=== PATIENT | male | born 1955 | race Caucasian/White ===

== ENCOUNTER → 2020-11-25 00:35 | Outpatient (CLI) | payer OTHER, SELFPAY ==
[2020-11-25 19:48] LABS: SARS-CoV-2 RNA PCR Negative
== END ==
PROVIDERS: PCP Internal Medicine; Visit Provider Internal Medicine Gastroenterology
DX: Z01.812 Encounter for preprocedural laboratory examination (principal); Z20.822 Contact with and (suspected) exposure to COVID-19
CPT/HCPCS: C9803; U0003; U0005

== ENCOUNTER 2020-11-28 00:47 | Day surgery (SDC) | payer OTHER, SELFPAY ==
[2020-11-14 15:08] VITALS: BMI 28.0
[2020-11-28 08:46] VITALS: BP 162/107; PULSE 102; RESP 18; TEMP 36.3; O2SAT 97
[2020-11-28] MEDS: LACTATED RINGERS 1,000 ML 150 ML IV CONT (09:10)
[2020-11-28 09:14] VITALS: BP 156/101; PULSE 90
--- NOTE | 2020-11-28 09:14 | WPDANESEPPF ---
Anes - Initial Pre Proc Eval Procedure: Operation Date: 11/28/20 10:00 Proposed Procedures p Screening Colonoscopy - Tyler Velazquez MD Date/Time: 11/28/20 09:14 Surgeon: Tyler Velazquez MD Pre Op Diagnosis: Neoplasm Screening Patient Data Age: 65 Gender: M Height: 5 ft 9 in Weight: 86 kg Last Vital Signs Temp 36.3 C L 11/28/20 08:46 Pulse 102 H 11/28/20 08:46 Resp 18 11/28/20 08:46 BP 162/107 H 11/28/20 08:46 Pulse Ox 97 11/28/20 08:46 Allergies Allergy/AdvReac Type Severity Reaction Status Date / Time No Known Allergies Allergy Verified 11/14/20 15:06 Home Medications Medication Instructions Recorded Confirmed Type sodium,potassium,mag sulfates See Rx Instructions .ROUTE 11/10/20 Rx [Suprep Bowel Prep Kit] .COMPLEX #1 ml nutritional supplement-fiber 2 ea PO DAILY 11/14/20 11/14/20 History [Juice Plus] diclofenac sodium 75 mg 75 mg PO BID PRN #90 tablet 11/17/20 Rx tablet,delayed release enalapril maleate 20 mg tablet 20 mg PO BID #90 tablet 11/17/20 Rx hydrochlorothiazide 12.5 mg capsule 25 mg PO DAILY #1 cap 11/24/20 Rx hydrochlorothiazide 12.5 mg tablet 12.5 mg PO DAILY #90 tablet 11/24/20 Rx Patient hx anesthesia problems: none Family hx anesthesia problems: none PMFSH Social History Social History Smoking packs per day: 3 Smoking cigarettes per day: 60.0 Years smoked: 15 Smoking pack-years: 45.00 Smoking status: Former smoker (30 years ago) Tobacco type: cigarettes Smoking end date: 10/13/89 Drinks per week: 4 Living arrangements: with family Gender identity (if verbalized by the patient): Male Spiritual care concerns: No Anes - Eval Final PreProcedure Day of Procedure 11/28/20 09:14 Patient weight: overweight Heart: regular rate and rhythm Lungs: clear to auscultation Airway: Mallampati scale class II Neurological: alert and oriented Last oral intake: >/= 8 hours ASA classification: II Emergent: no Anesthetic plan: proceed Anesthesia type and monitoring: general GIVS and standard monitoring Informed Consent: The patient's anesthetic plan and its attendant risks and benefits were discussed with the patient/family/POA. Questions were solicited and answers provided to the satisfaction of the patient/family/POA.
--- NOTE | 2020-11-28 09:14 | SUR.PREOP ---
0914 Dr. Valerio notified of patient's elevated B/P's this morning. Patient denies any headache or dizziness. No orders received at this time.
--- NOTE | 2020-11-28 09:26 | PM.HPGS ---
History of Present Illness History of Present Illness Consent: Risks, benefits, and alternatives have been discussed and questions answered. Patient agrees to proceed with procedure. Chief complaint: Neoplasm Screening Narrative: Sawyer Gan Jr. is a 65 year old male here for first screening colonoscopy Review of Systems Constitutional: Constitutional: Denies headache(s) and Denies weakness Eyes: Eyes: Denies blurry vision ENT: Reports Normal hearing present, Denies headache(s) and Denies neck pain Cardiovascular: Cardiovascular: Denies chest pain and Denies dyspnea Respiratory: Respiratory: Denies dyspnea Gastrointestinal: Gastrointestinal: Reports no additional gastrointestinal complaints Genitourinary: Genitourinary: Denies dysuria Musculoskeletal: Musculoskeletal: Denies neck pain Integumentary/Breasts: Skin/Breast: Denies dry skin Neurologic: Reports Normal hearing present, Denies headache(s) and Denies weakness Psychiatric: Psychiatric: Denies anxiety Endocrine: Endocrine: Denies change in body appearance Hematologic/Lymphatic: Hematologic/Lymphatic: Denies easy bleeding Allergic/Immunologic: Allergic/Immunologic: Denies urticaria PMFSH Social History Social History Smoking packs per day: 3 Smoking cigarettes per day: 60.0 Years smoked: 15 Smoking pack-years: 45.00 Smoking status: Former smoker (30 years ago) Tobacco type: cigarettes Smoking end date: 10/13/89 Drinks per week: 4 Living arrangements: with family Gender identity (if verbalized by the patient): Male Spiritual care concerns: No Meds Home Medications and Allergies Home Medications Medication Instructions Recorded Confirmed Type sodium,potassium,mag sulfates See Rx Instructions .ROUTE 11/10/20 Rx [Suprep Bowel Prep Kit] .COMPLEX #1 ml nutritional supplement-fiber 2 ea PO DAILY 11/14/20 11/14/20 History [Juice Plus] diclofenac sodium 75 mg 75 mg PO BID PRN #90 tablet 11/17/20 Rx tablet,delayed release enalapril maleate 20 mg tablet 20 mg PO BID #90 tablet 11/17/20 Rx hydrochlorothiazide 12.5 mg capsule 25 mg PO DAILY #1 cap 11/24/20 Rx hydrochlorothiazide 12.5 mg tablet 12.5 mg PO DAILY #90 tablet 11/24/20 Rx Allergies Allergy/AdvReac Type Severity Reaction Status Date / Time No Known Allergies Allergy Verified 11/14/20 15:06 Vital Signs Vital Signs - 24 hr 11/28/20 08:46 11/28/20 09:14 Temperature 97.4 F L Pulse Rate 102 H 90 Respiratory Rate 18 Blood Pressure 162/107 H 156/101 H Pulse Oximetry 97 Exam Const: General: comfortable and no acute distress HENMT: General nose exam: Normal nares present Eyes: General: appearance normal, both eyes and all related structures Neck: Neck: no JVD Resp: Auscultation: clear to auscultation bilaterally Cardio: Rate: regular rate Rhythm: regular rhythm GI: Inspection: non-distended GI Palp: Yes Soft to palpation Skin: General skin exam: normal color Neuro: General: gait normal Speech: normal speech Extrem: General: normal to inspection Psych: Mental Status: mental status grossly normal Assessment and Plan Assessment and plan (1) Encounter for screening colonoscopy: Code(s): Z12.11 - Encounter for screening for malignant neoplasm of colon Status: Acute Assessment and Plan: proceed with colonoscopy
[2020-11-28 09:45] VITALS: BP 113/77; PULSE 75; RESP 18; O2SAT 98
[2020-11-28 09:55] VITALS: BP 128/87; PULSE 84; RESP 22; O2SAT 97
[2020-11-28 10:05] VITALS: BP 145/81; PULSE 73; RESP 19; O2SAT 99
== END 2020-11-28 10:18 | disposition home or self-care (01) ==
PROVIDERS: PCP Internal Medicine; Visit Provider Internal Medicine Gastroenterology
PROC: 0DJD8ZZ Inspection of Lower Intestinal Tract, Via Natural or Artificial Opening Endoscopic (ICD-10-PCS; CPT 45378; principal; 2020-11-28 10:00)
DX: Z12.11 Encounter for screening for malignant neoplasm of colon (principal); K57.30 Diverticulosis of large intestine without perforation or abscess without bleeding; Z87.891 Personal history of nicotine dependence
CPT/HCPCS: G0121; C9803; J2704; J7120; U0003; U0005

== ENCOUNTER → 2021-12-17 09:23 | Outpatient (CLI) | payer OTHER, SELFPAY ==
--- NOTE | ~2021-12-17 | XR_ITS ---
EXAMINATION: XR knee LT 3V DATE: 12/17/2021 09:41 INDICATION: Other hypertrophic arthropathy, multiple sites. Left knee pain. TECHNIQUE: 3 views of left knee including standing views were obtained. COMPARISON: None. FINDINGS: There is varus attenuation at the knee. No fracture. There is moderate osteoarthritis of me dial compartment and mild osteoarthritis of lateral and patellofemoral compartments. No knee joint ef fusion. IMPRESSION: 1. Moderate left knee osteoarthritis. Reviewed, dictated and finalized at location A. APY DIRECTOR
== END ==
PROVIDERS: PCP Internal Medicine; Visit Provider Internal Medicine
DX: M89.49 Other hypertrophic osteoarthropathy, multiple sites (principal); M17.12 Unilateral primary osteoarthritis, left knee
CPT/HCPCS: 73562

== ENCOUNTER → 2022-03-28 08:03 | Outpatient (CLI) | payer OTHER, SELFPAY ==
--- NOTE | ~2022-03-28 | MR_ITS ---
EXAMINATION: MR shoulder LT wo con DATE: 03/28/2022 08:40 INDICATION: Left shoulder pain. TECHNIQUE: Magnetic resonance imaging (MRI) of the left shoulder was performed without intravenous co ntrast. Sequences included axial PD-weighted FS FSE, coronal oblique PD-weighted FS FSE and T2-weight ed FS FSE, and sagittal oblique T2-weighted FS FSE and T1-weighted FSE. COMPARISON: None. FINDINGS: Coracoacromial arch: The acromion undersurface is curved in morphology (type II). There is severe acromioclavicular joint osteoarthritis including inferiorly directed osteophytes. There is mild subacromial/subdeltoid bursit is. Rotator cuff: There is severe supraspinatus and infraspinatus tendinopathy. Teres minor tendon is normal. There is mild subscapularis tendinopathy. There is volume loss and mild fatty atrophy of subscapularis muscle belly. Biceps tendon and glenoid labrum: Biceps tendon is in bicipital groove. There is a partial tear of biceps tendon. There is widespread d egenerative tearing of the glenoid labrum. Fluid: There is no glenohumeral joint effusion. Bones/cartilage: There is partial-thickness cartilage loss of humeral head, deep at the central and posterior articula r surface. There is partial-thickness cartilage loss of glenoid. Osteophytes are noted. IMPRESSION: 1. Severe rotator cuff tendinopathy. No tear. 2. Moderate glenohumeral joint chondrosis. 3. Partial tear of proximal biceps tendon. 4. Severe acromioclavicular joint osteoarthritis. 5. Mild subacromial/subdeltoid bursitis. Reviewed, dictated and finalized at location B.
== END ==
PROVIDERS: PCP Internal Medicine; Visit Provider Internal Medicine
DX: M19.012 Primary osteoarthritis, left shoulder (principal); M75.52 Bursitis of left shoulder; M75.101 Unspecified rotator cuff tear or rupture of right shoulder, not specified as traumatic
CPT/HCPCS: 73221

== ENCOUNTER → 2022-05-31 13:57 | Outpatient (CLI) | payer OTHER, SELFPAY ==
--- NOTE | ~2022-05-31 | MR_ITS ---
EXAMINATION: MR chest wo/w con DATE: 05/31/2022 15:21 INDICATION: Left leg pain. Left arm weakness. TECHNIQUE: Magnetic resonance imaging (MRI) of the left brachial plexus was performed without and wit h 17 mL MultiHance intravenous contrast. COMPARISON: Cervical spine MRI 05/31/2022, left shoulder MRI 03/28/2022 FINDINGS: Bone alignment is normal. There is severe cervical spondylosis. The nerves of the left brac hial plexus are normal. No abnormal mass. IMPRESSION: 1. Normal left brachial plexus. 2. Severe cervical spondylosis. Reviewed, dictated and finalized at location A.
--- NOTE | ~2022-05-31 | MR_ITS ---
EXAMINATION: MR cervical spine wo/w con DATE: 05/31/2022 15:21 INDICATION: Left neck pain. Left arm weakness. TECHNIQUE: Magnetic resonance imaging (MRI) of the cervical spine was performed without and with 17 m L MultiHance intravenous contrast. COMPARISON: None FINDINGS: There is 2 mm retrolisthesis of C3 on C4. Vertebral body heights are normal. There is sever marcus decreased disc height at C3-C4 and moderately decreased disc height at C5-C6 and C6-C7. There is increased T2-weighted signal intensity in the spinal cord at C5-C6, consistent with myelomalacia. The following disc levels are specifically discussed: C2-C3: The disc does not extend beyond the endplate margin. There is no uncovertebral joint osteoarth ritis. There is mild bilateral facet joint osteoarthritis. There is no neural foraminal stenosis. The re is no central canal stenosis. C3-C4: The disc is bulging. There is severe bilateral uncovertebral joint osteoarthritis. There is mi ld bilateral facet joint osteoarthritis. There is moderate bilateral neural foraminal stenosis. There is moderate central canal stenosis with ventral and dorsal indentation of the spinal cord. C4-C5: There is a left central extrusion. There is severe bilateral uncovertebral joint osteoarthriti s. There is moderate bilateral facet joint osteoarthritis. There is moderate bilateral neural foramin al stenosis. There is moderate central canal stenosis with ventral and dorsal indentation of spinal c ord. C5-C6: There is a central extrusion. There is severe bilateral uncovertebral joint osteoarthritis. Th ere is moderate bilateral facet joint osteoarthritis. There is severe bilateral neural foraminal sten osis. There is severe central canal stenosis with ventral and dorsal indentation of the spinal cord a nd increased signal in the cord.. C6-C7: The disc is bulging. There is severe bilateral uncovertebral joint osteoarthritis. There is mi ld right and moderate left facet joint osteoarthritis. There is moderate bilateral neural foraminal s tenosis. There is moderate central canal stenosis with ventral and dorsal indentation of the spinal c ord. C7-T1: There is a right central extrusion. There is mild bilateral uncovertebral joint osteoarthritis . There is severe bilateral facet joint osteoarthritis. There is mild right neural foraminal stenosis . There is mild central canal stenosis. IMPRESSION: 1. Myelomalacia at C5-C6. 2. Severe cervical spondylosis. Reviewed, dictated and finalized at location A.
== END ==
PROVIDERS: PCP Internal Medicine; Visit Provider Psychiatry & Neurology Neurology
DX: R53.1 Weakness (principal); M79.662 Pain in left lower leg
CPT/HCPCS: 71552; 72156; A9577

== ENCOUNTER 2022-07-17 08:25 | Outpatient (CLI) | payer OTHER, SELFPAY ==
--- NOTE | 2022-07-17 11:00 | NEURO_ITS ---
IMPRESSION: # Bilateral Carpal Tunnel Syndrome. # Mild right ulnar neuropathy across the elbow. # Needle exam revealed neurogenic changes in deltoid, biceps, triceps and pronater teres on the left ,suggesting higher involvement. Nerve Conduction Studies Anti Sensory Summary Table Stim Site NR Peak (ms) P-T Amp (?V) Site1 Site2 Delta-P (ms) Dist (cm) Gary (m/s) Left Median Anti Sensory (2-3nd Digit) Wrist 2.6 54.0 Wrist 2-3nd Digit 2.6 14.0 54 Wrist 5.0 30.3 Wrist 2-3nd Digit 2.6 14.0 54 Right Median Anti Sensory (2-3nd Digit) Wrist 5.5 54.3 Wrist 2-3nd Digit 5.5 14.0 25 Wrist 8.6 95.3 Wrist 2-3nd Digit 5.5 14.0 25 Left Radial Anti Sensory (Base 1st Digit) Wrist 2.2 6.7 Wrist Base 1st Digit 2.2 0.0 Right Radial Anti Sensory (Base 1st Digit) Wrist 2.9 15.5 Wrist Base 1st Digit 2.9 0.0 Left Ulnar Anti Sensory (5th Digit) Wrist 3.6 12.2 Wrist 5th Digit 3.6 14.0 39 Right Ulnar Anti Sensory (5th Digit) Wrist 3.5 21.1 Wrist 5th Digit 3.5 14.0 40 Motor Summary Table Stim Site NR Onset (ms) O-P Amp (mV) Site1 Site2 Delta-0 (ms) Dist (cm) Gary (m/s) Left Median Motor (Abd Poll Brev) Wrist 5.0 3.8 Elbow Wrist 6.2 32.0 52 Elbow 11.2 3.3 Right Median Motor (Abd Poll Brev) Wrist 5.5 4.0 Elbow Wrist 6.0 28.0 47 Elbow 11.5 3.6 Left Ulnar Motor (Abd Dig Minimi) Wrist 3.0 5.4 A Elbow Wrist 5.7 30.0 53 A Elbow 8.7 4.4 B Elbow Wrist 4.0 23.0 58 B Elbow 7.0 2.9 Right Ulnar Motor (Abd Dig Minimi) Wrist 4.2 4.7 A Elbow Wrist 5.0 30.0 60 A Elbow 9.2 3.1 F Wave Studies NR F-Lat (ms) L-R F-Lat (ms) Left Median (Mrkrs) (Abd Poll Brev) 32.81 0.00 Right Median (Mrkrs) (Abd Poll Brev) 32.81 0.00 Left Ulnar (Mrkrs) (Abd Dig Min) 30.78 1.38 Right Ulnar (Mrkrs) (Abd Dig Min) 32.16 1.38 EMG Side Muscle Nerve Root Ins Act Fibs Amp Dur Recrt Comment Right 1stDorInt Ulnar C8-T1 Nml Nml Nml Nml Nml Right Ext Indicis Radial (Post Int) C7-8 Nml Nml Nml Nml Nml Right Ext Digitorum Radial (Post Int) C7-8 Nml Nml Nml Nml Nml Right BrachioRad Radial C5-6 Nml Nml Nml Nml Nml Right PronatorTeres Median C6-7 Nml Nml Nml Nml Nml Right Abd Poll Brev Median C8-T1 Nml Nml Nml Nml Nml Left 1stDorInt Ulnar C8-T1 Nml Nml Nml Nml Nml Left Ext Indicis Radial (Post Int) C7-8 Nml Nml Nml Nml Nml Left Ext Digitorum Radial (Post Int) C7-8 Nml Nml Nml Nml Nml Left BrachioRad Radial C5-6 Nml Nml Nml Nml Nml Left PronatorTeres Median C6-7 Nml Nml Nml Nml Nml Left Abd Poll Brev Median C8-T1 Nml Nml Nml Nml Nml MTDD
== END 2022-07-17 08:26 | disposition home or self-care (01) ==
PROVIDERS: PCP Internal Medicine; Visit Provider Psychiatry & Neurology Neurology
DX: R53.1 Weakness (principal); G56.03 Carpal tunnel syndrome, bilateral upper limbs; G56.21 Lesion of ulnar nerve, right upper limb
CPT/HCPCS: 95886; 95911

== ENCOUNTER → 2022-08-12 08:12 | Outpatient (CLI) | payer OTHER, SELFPAY ==
--- NOTE | ~2022-08-12 | CT_ITS ---
EXAMINATION: CT cervical spine wo con DATE: 08/12/2022 08:27 INDICATION: Neck pain. Left arm weakness. TECHNIQUE: Computed tomography (CT) of the cervical spine was performed without intravenous contrast. Automated exposure control and iterative reconstruction technique were employed. The dose-length pro duct was 329.14 mGy-cm. COMPARISON: Cervical spine MRI 05/31/2022 FINDINGS: There is 2 mm retrolisthesis of C3 on C4, C4 on C5, and C5 on C6. Vertebral body heights ar e normal. There is mildly decreased disc height at C2-C3, severely decreased disc height at C3-C4, mi ldly decreased disc height at C4-C5, severely decreased disc height at C5-C6 and C6-C7, and mildly de creased disc height at C7-T1. Osseous central spinal canal is developmentally small. The following di sc levels are specifically discussed: C2-C3: There is no uncovertebral joint osteoarthritis. There is mild bilateral facet joint osteoarthr itis. There is no neural foraminal stenosis. There is no central canal stenosis. C3-C4: There is severe bilateral uncovertebral joint osteoarthritis. There is mild bilateral facet darrian int osteoarthritis. There is mild right and moderate left neural foraminal stenosis. There is moderat e central canal stenosis. C4-C5: There is severe bilateral uncovertebral joint osteoarthritis. There is moderate right and maria alejandra re left facet joint osteoarthritis. There is mild right and moderate left neural foraminal stenosis. There is moderate central canal stenosis. C5-C6: There is severe bilateral uncovertebral joint osteoarthritis. There is moderate bilateral face t joint osteoarthritis. There is severe bilateral neural foraminal stenosis. There is severe central canal stenosis. C6-C7: There is severe bilateral uncovertebral joint osteoarthritis. There is moderate bilateral face t joint osteoarthritis. There is moderate bilateral neural foraminal stenosis. There is moderate cent ral canal stenosis. C7-T1: There is mild bilateral uncovertebral joint osteoarthritis. There is severe bilateral facet darrian int osteoarthritis. There is mild bilateral neural foraminal stenosis. There is no central canal sten osis. IMPRESSION: 1. Severe cervical spondylosis. Reviewed, dictated and finalized at location A.
== END ==
PROVIDERS: PCP Neurological Surgery; Visit Provider Neurological Surgery
DX: M47.892 Other spondylosis, cervical region (principal)
CPT/HCPCS: 72125

== ENCOUNTER 2022-08-28 10:43 | Outpatient (CLI) | payer OTHER, SELFPAY ==
--- NOTE | ~2022-08-28 | XR_ITS ---
XR chest 2V DATE: 08/28/2022 11:41 INDICATION: Preprocedural examination TECHNIQUE: PA and lateral views COMPARISON: None FINDINGS: There is normal heart size. Mild aortic unfolding. No hilar or mediastinal enlargement. No pulmonary infiltrate or consolidation, pleural effusion or pulmonary vascular congestion or pneumotho rax. There is degenerative spurring and minimal dextroscoliosis of the thoracic spine. IMPRESSION: No active cardiopulmonary disease Reviewed, dictated and finalized at location A. ICAL RESEARCH ASSISTANT
--- NOTE | 2022-08-28 10:55 | ECG_ITS ---
Measurements Intervals [place] Rate: 63 P: 5 MN: 180 QRS: -37 QRSD: 109 T: 4 QT: 393 QTc: 403 Interpretive Statements SINUS RHYTHM WITH SINUS ARRHYTHMIA LEFT AXIS DEVIATION DELAYED PRECORDIAL R/S TRANSITION VOLTAGE CRITERIA FOR LVH BORDERLINE T WAVE ABNORMALITY- INFERIOR LEADS BASELINE ARTIFACT- V3 BORDERLINE ECG NO PREVIOUS ECG AVAILABLE FOR COMPARISON Electronically Signed On 08-28-2022 12:14:29 GLOBAL SAFETY OFFICER by Reyes Jules D.O.
== END 2022-08-28 10:44 | disposition home or self-care (01) ==
LOC: ANHLAB 10:45 → ANHCARD 10:47
PROVIDERS: PCP Neurological Surgery; Visit Provider Internal Medicine
DX: Z01.818 Encounter for other preprocedural examination (principal); R94.31 Abnormal electrocardiogram [ECG] [EKG]
CPT/HCPCS: 71046; 93005

== ENCOUNTER 2022-08-29 06:37 | Outpatient (CLI) | payer OTHER, SELFPAY ==
[2022-08-29 07:38] LABS: Hematocrit 44.1 % (42.0-52.0); Mean Corpuscular Hemoglobin 31.3 pg (26-34); Mean Corpuscular Volume 92.1 fl (80-100); Mean Platelet Volume 8.7 fl (7.4-10.4); Platelet Count Result 288 k/mm3 (150-375); Red Blood Count 4.79 M/mm3 (4.6-6.20); Red Cell Distribution Width 12.5 % (11.5-14.5); White Blood Count 4.4 K/mm3 (4.5-10.0)
[2022-08-29 07:45] LABS: Alanine Aminotransferase 32 U/L (6-50); Albumin Level 4.6 g/dL (3.5-5.1); Alkaline Phosphatase 57 U/L (38-126); Anion Gap 13 mmol/L (8-16); Aspartate Amino Transferase 34 U/L (17-59); Bilirubin,Total 0.7 mg/dL (0.2-1.3); Blood Urea Nitrogen 18 mg/dL (9-20); Calcium 9.6 mg/dL (8.4-10.2); Carbon Dioxide 29 mmol/L (22-30); Chloride 99 mmol/L (98-107); Cholesterol 132 mg/dL (0-200); Estimated Glomerular Filt Rate > 60; Glucose 105 mg/dL (65-110); HDL Direct 32 mg/dL; Potassium 3.9 mmol/L (3.4-5.0); Sodium 141 mmol/L (137-145); Triglycerides 106 mg/dL (<150)
[2022-08-29 07:56] LABS: LDL Cholesterol Direct 67 mg/dL
== END 2022-08-29 06:38 | disposition home or self-care (01) ==
PROVIDERS: PCP Neurological Surgery; Visit Provider Internal Medicine
DX: Z01.818 Encounter for other preprocedural examination (principal); E78.5 Hyperlipidemia, unspecified; I10 Essential (primary) hypertension
CPT/HCPCS: 36415; 80053; 80061; 85027

== ENCOUNTER 2022-10-10 06:29 | Day surgery (SDC) | payer OTHER, SELFPAY ==
[2022-09-26 13:27] VITALS: BMI 28.5
--- NOTE | 2022-09-26 13:38 | PC.NURSE ---
PRE-OP INSTRUCTIONS, PLEASE READ CAREFULLY Report to the Outpatient Waiting Room, entrance under the green pavilion located off [facility], at time _0600_ on date _10/10/22_. Planned Procedure Time: _0730_. PACK A SMALL OVERNIGHT BAG AND LEAVE IN THE CAR Time changes happen often and if your time is changed the preop area will call you the afternoon before. - You and your visitor will be asked to self-screen and do not enter if you have any COVID symptoms. - Only one visitor is requested with a max of two and NO children visitors are allowed at this time. - The patient visitor may be requested to leave or wait in car when not with patient due to distancing restrictions. - A mask is required within the hospital. -VISITING HOURS 8AM-8PM Patients may have clear liquids (water, carbonated beverages, clear teas, apple juice) until 3 hours prior to surgery (0730 AM) with a maximum of 20 ounces. - No food from midnight until time of surgery Take the following medications with a SIP of water the morning of surgery: _NONE_ Medications to discontinue per ANESTHESIA - _VITAMINS/SUPPLEMENTS 3 DAYS PRIOR TO SURGERY, Date to take last dose 10/06/22_ Please no make-up, nail occitan, hairspray, perfume, deodorant, or body powder the day of surgery. No jewelry (including any body piercings) or valuables the day of surgery, leave them at home. Please take a shower or bath the night before, or the morning of, surgery with an antibacterial soap. Wear comfortable, loose fitting clothing. - Jewelry must be removed prior to entering the operating room. Rings and piercings that are not removed may be cut off. - The hospital will not accept responsibility for valuables. - Please leave all valuables, including medications, at home the day of surgery. If you are going home after surgery, a licensed refrigerated company driver must drive you home. - NO public transportation without another adult if you receive anesthesia. - We recommend that an adult stay with you for 24 hours following discharge. - We also recommend that you do not drive, make important decision, drink alcoholic beverages, or take any drugs that were not prescribed by your health care provider for at least 24 hours after your discharge time. Follow any additional instructions given to you from your surgeon. If you or anyone in your household have experienced Covid symptoms in the past week, please notify your surgeon or the nurse liaison at the phone number below for possible testing. Telephone instructions given to _PATIENT_and asked if any additional questions and then verbalized understanding. Patient advised to call surgeon office or pre surgery nurse liaison [phone] if any additional questions.
== END 2022-10-10 08:56 ==
PROVIDERS: PCP Internal Medicine; Visit Provider Neurological Surgery
DX: M48.02 Spinal stenosis, cervical region (principal); Z53.9 Procedure and treatment not carried out, unspecified reason
CPT/HCPCS: 99199

== ENCOUNTER → 2023-03-19 14:34 | Outpatient (CLI) | payer OTHER, SELFPAY ==
--- NOTE | ~2023-03-19 | MR_ITS ---
EXAMINATION: MR cervical spine wo con DATE: 03/19/2023 15:10 INDICATION: Neck pain. TECHNIQUE: Magnetic resonance imaging (MRI) of the cervical spine was performed without intravenous c ontrast. COMPARISON: Cervical spine MRI 05/31/2022 FINDINGS: There is kyphosis of cervical spine. There is 2 mm retrolisthesis of C3 on C4, C4 on C5, an d C5 on C6. Vertebral body heights are normal. There is severely decreased disc height at C3-C4, mild ly decreased disc height at C4-C5, and severely decreased disc height at C5-C6 and C6-C7. There is in creased T2-weighted signal intensity in the spinal cord centered at the bradford matter at C5-C6 and C6-C 7, consistent with myelomalacia. The following disc levels are specifically discussed: C2-C3: The disc does not extend beyond the endplate margin. There is no uncovertebral joint osteoarth ritis. There is mild bilateral facet joint osteoarthritis. There is no neural foraminal stenosis. The re is no central canal stenosis. C3-C4: There is a central extrusion. There is moderate bilateral uncovertebral joint osteoarthritis. There is mild bilateral facet joint osteoarthritis. There is mild bilateral neural foraminal stenosis . There is mild central canal stenosis with ventral indentation of spinal cord. C4-C5: There is a central extrusion. There is mild right and severe left uncovertebral joint osteoart hritis. There is moderate bilateral facet joint osteoarthritis. There is mild right and moderate left neural foraminal stenosis. There is moderate central canal stenosis with ventral and dorsal indentat ion of spinal cord. C5-C6: There is a central extrusion. There is severe bilateral uncovertebral joint osteoarthritis. Th ere is moderate bilateral facet joint osteoarthritis. There is severe bilateral neural foraminal sten osis. There is severe central canal stenosis with ventral and dorsal indentation of spinal cord. C6-C7: There is a central extrusion. There is severe bilateral uncovertebral joint osteoarthritis. Th ere is moderate bilateral facet joint osteoarthritis. There is moderate bilateral neural foraminal st enosis. There is mild central canal stenosis. C7-T1: There is a central extrusion. There is mild bilateral uncovertebral joint osteoarthritis. Ther e is severe bilateral facet joint osteoarthritis. There is mild bilateral neural foraminal stenosis. There is mild central canal stenosis. IMPRESSION: 1. Myelomalacia at C5-C6 and C6-C7. 2. Severe cervical spondylosis, stable from 05/31/2022. Reviewed, dictated and finalized at location A.
== END ==
PROVIDERS: PCP Family Medicine; Visit Provider Neurological Surgery
DX: G95.89 Other specified diseases of spinal cord (principal); M47.812 Spondylosis without myelopathy or radiculopathy, cervical region
CPT/HCPCS: 72141

== ENCOUNTER 2023-05-14 07:35 | Outpatient (CLI) | payer OTHER, SELFPAY ==
[2023-05-14 07:56] LABS: Hemoglobin A1C 5.8 % (<5.7)
[2023-05-14 07:57] LABS: Alanine Aminotransferase 28 U/L (6-50); Albumin Level 4.4 g/dL (3.5-5.1); Alkaline Phosphatase 61 U/L (38-126); Anion Gap 8 mmol/L (8-16); Aspartate Amino Transferase 31 U/L (17-59); Bilirubin,Total 0.8 mg/dL (0.2-1.3); Blood Urea Nitrogen 17 mg/dL (9-20); Calcium 9.2 mg/dL (8.4-10.2); Carbon Dioxide 30 mmol/L (22-30); Chloride 101 mmol/L (98-107); Cholesterol 126 mg/dL (0-200); Estimated Glomerular Filt Rate > 60; Glucose 104 mg/dL (65-110); HDL Direct 31 mg/dL; Potassium 3.6 mmol/L (3.4-5.0); Sodium 139 mmol/L (137-145); Triglycerides 92 mg/dL (<150)
[2023-05-14 08:08] LABS: LDL Cholesterol Direct 67 mg/dL
[2023-05-14 08:26] LABS: Prostate Specific Antigen 0.4 ng/mL (< OR = 4.0)
[2023-05-17 12:18] LABS: Vitamin D 1,25 (OH)2 Total 32 pg/mL (18-72); Vitamin D2 1,25 (OH)2 <8 pg/mL; Vitamin D3 1,25 (OH)2 32 pg/mL
== END 2023-05-14 07:36 | disposition home or self-care (01) ==
PROVIDERS: PCP Family Medicine; Visit Provider Family Medicine
DX: E55.9 Vitamin D deficiency, unspecified (principal); I10 Essential (primary) hypertension; E78.5 Hyperlipidemia, unspecified; N40.0 Benign prostatic hyperplasia without lower urinary tract symptoms; Z79.899 Other long term (current) drug therapy; Z12.5 Encounter for screening for malignant neoplasm of prostate
CPT/HCPCS: 36415; 80053; 80061; 82652; 83036; 84153; G0103

== ENCOUNTER 2024-01-20 06:40 | Outpatient (CLI) | payer OTHER, SELFPAY ==
[2024-01-20 07:28] LABS: Hematocrit 43.2 % (42.0-52.0); Hemoglobin 14.5 g/dL (14.0-18.0); Mean Corpuscular HGB Conc 33.6 g/dl (32-36); Mean Corpuscular Hemoglobin 30.9 pg (26-34); Mean Corpuscular Volume 92.1 fl (80-100); Mean Platelet Volume 8.9 fl (7.4-10.4); Platelet Count Result 283 k/mm3 (150-375); Red Blood Count 4.69 M/mm3 (4.6-6.20); Red Cell Distribution Width 12.4 % (11.5-14.5); White Blood Count 5.2 K/mm3 (4.5-10.0)
[2024-01-20 07:46] LABS: Alanine Aminotransferase 21 U/L (6-50); Albumin Level 4.3 g/dL (3.5-5.1); Alkaline Phosphatase 66 U/L (38-126); Anion Gap 6 mmol/L (4-12); Aspartate Amino Transferase 28 U/L (17-59); Bilirubin,Total 0.7 mg/dL (0.2-1.3); Blood Urea Nitrogen 20 mg/dL (9-20); Calcium 9.8 mg/dL (8.4-10.2); Carbon Dioxide 29 mmol/L (22-30); Chloride 105 mmol/L (98-107); Cholesterol 130 mg/dL (0-200); Estimated Glomerular Filt Rate > 60; Glucose 114 mg/dL (65-110); HDL Direct 30 mg/dL; Potassium 3.9 mmol/L (3.4-5.0); Sodium 140 mmol/L (137-145); Triglycerides 90 mg/dL (<150)
[2024-01-20 07:58] LABS: LDL Cholesterol Direct 79 mg/dL
[2024-01-20 08:15] LABS: Prostate Specific Antigen 0.4 ng/mL (< OR = 4.0)
[2024-01-20 09:52] LABS: Vitamin D 25 Hydroxy 79.4 ng/mL
== END 2024-01-20 06:41 | disposition home or self-care (01) ==
PROVIDERS: PCP Family Medicine; Visit Provider Family Medicine
DX: M48.02 Spinal stenosis, cervical region (principal); E55.9 Vitamin D deficiency, unspecified; I10 Essential (primary) hypertension; E78.5 Hyperlipidemia, unspecified; Z86.19 Personal history of other infectious and parasitic diseases; Z12.5 Encounter for screening for malignant neoplasm of prostate
CPT/HCPCS: 36415; 80053; 80061; 82306; 84153; 85027; G0103

== ENCOUNTER 2024-07-31 06:57 | Outpatient (CLI) | payer OTHER, SELFPAY ==
[2024-07-31 07:47] LABS: Hematocrit 40.9 % (42.0-52.0); Hemoglobin 14.3 g/dL (14.0-18.0); Mean Corpuscular Hemoglobin 32.2 pg (26-34); Mean Corpuscular Volume 92.1 fl (80-100); Mean Platelet Volume 8.4 fl (7.4-10.4); Platelet Count Result 237 k/mm3 (150-375); Red Blood Count 4.44 M/mm3 (4.6-6.20); Red Cell Distribution Width 12.5 % (11.5-14.5); White Blood Count 3.6 K/mm3 (4.5-10.0)
[2024-07-31 07:56] LABS: Alanine Aminotransferase 25 U/L (6-50); Albumin Level 4.2 g/dL (3.5-5.1); Alkaline Phosphatase 50 U/L (38-126); Anion Gap 6 mmol/L (4-12); Aspartate Amino Transferase 32 U/L (17-59); Bilirubin,Total 0.8 mg/dL (0.2-1.3); Blood Urea Nitrogen 20 mg/dL (9-20); Calcium 9.6 mg/dL (8.4-10.2); Carbon Dioxide 31 mmol/L (22-30); Chloride 102 mmol/L (98-107); Estimated Glomerular Filt Rate > 60; Glucose 112 mg/dL (65-110); Sodium 139 mmol/L (137-145)
[2024-07-31 08:13] LABS: Hemoglobin A1C 5.7 % (<5.7)
== END 2024-07-31 06:58 | disposition home or self-care (01) ==
PROVIDERS: PCP Family Medicine; Visit Provider Family Medicine
DX: E78.5 Hyperlipidemia, unspecified (principal); I10 Essential (primary) hypertension; E55.9 Vitamin D deficiency, unspecified; Z79.899 Other long term (current) drug therapy
CPT/HCPCS: 36415; 80053; 82306; 83036; 85027

== ENCOUNTER 2025-02-09 07:01 | Outpatient (CLI) | payer OTHER, SELFPAY ==
--- NOTE | ~2025-02-09 | MR_ITS ---
MRI of the cervical spine Clinical History: Stenosis Technique: Axial T2-weighted and gradient images, and sagittal T1-weighted, T2-weighted, and STIR mau ges were acquired. COMPARISON: 03/19/2023 Findings: There is mild reversal normal cervical lordosis. There is 2 mm retrolisthesis of C3 over C4 . There is 2 mm retrolisthesis of C4 over C5. No suspicious bone marrow signal abnormality seen. At C2-C3, there is no disc bulge or herniation. No spinal canal stenosis, cord compression, or neural foraminal narrowing. At C3-C4, there is severe degenerative disc narrowing. There is disc osteophyte complex with mild to moderate canal stenosis and mild ventral cord compression. There is bilateral neural foraminal narrow ing. At C4-C5, there is moderate to advanced degenerative disc narrowing. There is disc osteophyte complex with moderate canal stenosis and cord compression. There is severe bilateral neural foraminal narrow ing. At C5-C6, there is severe degenerative disc narrowing. Disc osteophyte complex and disc protrusion re sult in severe spinal canal stenosis and severe cord compression. There is severe bilateral neural fo raminal narrowing with advanced bilateral facet arthropathy. At C6-C7, there is severe degenerative disc narrowing. There is disc osteophyte complex with moderate canal stenosis but no tamiko cord compression. There is bilateral neural foraminal narrowing. Probable myelomalacia at the C5-C6 level, similar to prior exam. Paravertebral soft tissues are unrem arkable. Impression: Severe degenerative spondylosis is similar to prior exam. There is severe canal stenosis and cord com pression at C5-C6 with myelomalacia at this level. There is moderate canal stenosis and cord compress ion at C3-C4 and C4-C5. Multilevel neural foraminal narrowing present. Please see details above. Reviewed, dictated and finalized at [facility]. Impression: Severe degenerative spondylosis is similar to prior exam. There is severe canal stenosis and cord compression at C5-C6 with myelomalacia at this level. There is moderate canal stenosis and cord compression at C3-C4 and C4-C5. Multilevel neural foraminal narrowing present. Please see details above.
== END 2025-02-09 07:02 | disposition home or self-care (01) ==
LOC: MICIMG 07:01
PROVIDERS: PCP Neurological Surgery; Visit Provider Neurological Surgery
DX: M48.02 Spinal stenosis, cervical region (principal); M47.892 Other spondylosis, cervical region
CPT/HCPCS: 72141

== ENCOUNTER 2025-04-23 06:38 | Outpatient (CLI) | payer OTHER, SELFPAY ==
--- OUTSIDE RECORDS SUMMARY | 2025-04-23 06:40 | XMS_ITS | Clinical Summary ---
Author Organization [facility] Address [address] [place] [address] Care Team Providers Care Underwriting Account Representative Name Role Phone Michael Hyde MD Primary Care Provider Source Comments [facility],non-owned Affiliates and Associated Physician Practices is amultiple site organization consisting of ambulatory clinics and hospital sitesin [place], [place], [place] and [place]. This disclosure is being madepursuant to the Care Everywhere program and may not contain all information available regarding this patient. Last updated 18.[facility] Active Problems Problem Noted Date Diagnosed Date Viral hepatitis C without hepatic coma 6 Overview (01/12/2018): Started viekira and ribavirin Started 07/25/2015 completed October Obtained SVR Essential (primary) hypertension 05/09/2015 Family History Medical History Relation Name Comments Diabetes Maternal Grandfather Diabetes Maternal Uncle Relation Name Status Comments Maternal Grandfather Maternal Uncle Social History Tobacco Use Types Packs/Day Years Used Date Smoking Tobacco: Former Cigarettes Q uit: 10/13/1989 Smokeless Tobacco: Never Alcohol Use Standard Drinks/Week Comments No 0 (1 standard drink = 0.6 oz pur e alcohol) Sex and Gender Information Value Date Recorded Sex Assigned at Not on file 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 Gender Identity Not on file Sexual Orientation Not on file Last Filed Vital Signs Vital Sign Reading Time Taken Comments Blood Pressure 141/92 02/15/2016 9:49 AM CDT Pulse 67 02/15/2016 9:49 AM CDT Temperature 36.8 C (98.3 F) 02/15/2016 9:49 AM CDT Respiratory Rate 18 02/15/2016 9:49 AM CDT Oxygen Saturation - - Inhaled Oxygen Concentration - - Weight 90.6 kg (199 lb 11.2 oz) 02/15/2016 9:49 AM CDT Height 177.8 cm (5' 10) 02/15/2016 9:49 AM CDT Body Mass Index 28.65 02/15/2016 9:49 AM CDT Plan of Treatment Health Maintenance Due Date Last Done Comments COLOGUARD (AGES 45-75) - COLON CA SCREENING 1953 COLON MONITORING 1953 COLONOSCOPY - COLON CA SCREENING 1953 CT COLONOGRAPHY - COLON CA SCREENING 1953 Colorectal Cancer Screening 1953 FIT - COLON CA SCREENING 1953 FLEX SIG - COLON CA SCREENING 1953 LIPID TESTING 1953 DTAP/TDAP/TD VACCINES (1 - Tdap) 1972 PNEUMOCOCCAL VACCINE 50+ (1 of 1 - PCV) 2003 ZOSTER VACCINE (1 of 2) 2003 AAA SCREENING 2018 COVID-19 VACCINE (1 - season) 2024 DEPRESSION SCREENING 10/13/2024 INFLUENZA VACCINE (#1) 2025 Respiratory Syncytial Virus (RSV) Vaccine Pt: or over 60 yrs (1 - 1-dose 75+ series) 2028 HEPATITIS C SCREENING Completed 02/23/2016 , 02/15/2016, 02/15/2016, Additional history exists HEPATITIS B VACCINE Aged Out No longe r eligible based on patient's age to complete this topic HIB VACCINE Aged Out No longer eligi ble based on patient's age to complete this topic HPV VACCINE Aged Out No longer eligi ble based on patient's age to complete this topic MENINGOCOCCAL (Group B) VACCINE SHARED DECISION-MAKING Aged Out No longer eligible based on patient's age to complete this topic MENINGOCOCCAL GROUPS A/C/Y/W VACCINE Aged Out No longer eligible based on patient's age to complete this topic Procedures Procedure Name Priority Date/Time Associated Diagnosis Comments HEPATITIS C REAL-TIME PCR QUANTASURE Routine 01/24/2016 9:20 AM CDT from Last 3 Months or Most Recently Relevant to Health Maintenance Results * HEPATITIS C REAL-TIME PCR QUANTASURE (01/24/2016 9:20 AM CDT) Hepatitis C Virus RNA PCR Quantitative <15 NOT DETECTED <15 IU/mL [facility] Hepatitis C Virus RNA Log IU/mL <1.18 NOT DETECTED <1.18 Log IU/mL [facility] See Note [facility] Comment: The analytical performance characteristics of this assay have been determined by [facility]. The modifications have not been cleared or approved by the FDA. This assay has been validated pursuant to the CLIA regulations and is used for clinical purposes. This test was performed using the REBEKAH(R)AmpliPrep/ REBEKAH(R)TaqMan(R)HCV Test,v2.0. For more information on this test, go to: http://education.[employer]/faq/IBX31p6 (This link is being provided for informational/ educational purposes only.) REPORT COMMENT: FASTING:YES Test Performed at: [facility] [address] [place] [address] MARE MAGANA DO,MPH 01/24/2016 9:20 AM CDT 01/24/2016 9:21 AM CDT us Princess Liao PROGRAMMING INSTRUCTOR-SILK EXAMINER LAB - SEROLOGY ORDER KRISTIAN Final Result [place] (U) [id number] from Last 3 Months or Most Recently Relevant to Health Maintenance Care Teams Underwriting Account Representative Relationship Specialty Start Date End Date Michael Hyde MD [address] [place] [address] PCP - General 05/09/15
[2025-04-23 07:48] LABS: Hematocrit 42.7 % (42.0-52.0); Hemoglobin 14.4 g/dL (14.0-18.0); Mean Corpuscular HGB Conc 33.7 g/dl (32-36); Mean Corpuscular Hemoglobin 30.6 pg (26-34); Mean Corpuscular Volume 90.7 fl (80-100); Platelet Count Result 255 k/mm3 (150-375); Red Blood Count 4.71 M/mm3 (4.6-6.20); White Blood Count 5.5 K/mm3 (4.5-10.0)
[2025-04-23 08:07] LABS: Alanine Aminotransferase 27 U/L (6-50); Albumin Level 4.2 g/dL (3.5-5.1); Alkaline Phosphatase 50 U/L (38-126); Anion Gap 9 mmol/L (4-12); Aspartate Amino Transferase 37 U/L (17-59); Bilirubin,Total 0.9 mg/dL (0.2-1.3); Blood Urea Nitrogen 18 mg/dL (9-20); Calcium 9.2 mg/dL (8.4-10.2); Carbon Dioxide 27 mmol/L (22-30); Chloride 103 mmol/L (98-107); Cholesterol 110 mg/dL (0-200); Estimated Glomerular Filt Rate > 60; Glucose 116 mg/dL (65-110); HDL Direct 33 mg/dL; Potassium 3.5 mmol/L (3.4-5.0); Sodium 139 mmol/L (137-145); Total Protein 7.9 g/dL (6.3-8.2); Triglycerides 60 mg/dL (<150)
[2025-04-23 08:42] LABS: Prostate Specific Antigen 0.5 ng/mL (< OR = 4.0)
[2025-04-23 09:01] LABS: Vitamin B12 228.0 pg/mL (239-931)
[2025-04-23 09:30] LABS: Iron 114 ug/dL (49-181)
[2025-04-23 09:41] LABS: Percent Iron Saturation 39 % (20-50)
[2025-04-23 10:17] LABS: Ferritin 207.00 ng/mL (11.1-264)
== END 2025-04-23 06:39 | disposition home or self-care (01) ==
PROVIDERS: PCP Family Medicine; Visit Provider Family Medicine
DX: D64.9 Anemia, unspecified (principal); M25.512 Pain in left shoulder; I10 Essential (primary) hypertension; E78.5 Hyperlipidemia, unspecified; E55.9 Vitamin D deficiency, unspecified; Z86.19 Personal history of other infectious and parasitic diseases; M48.00 Spinal stenosis, site unspecified; Z79.899 Other long term (current) drug therapy; N40.0 Benign prostatic hyperplasia without lower urinary tract symptoms; Z12.5 Encounter for screening for malignant neoplasm of prostate
CPT/HCPCS: 36415; 80053; 80061; 82306; 82607; 82728; 83540; 83550; 84153; 85027; G0103

== ENCOUNTER 2025-04-30 06:37 | Outpatient (CLI) | payer OTHER, SELFPAY ==
--- OUTSIDE RECORDS SUMMARY | 2025-04-30 06:40 | XMS_ITS | Clinical Summary ---
Author Organization [facility] Address [address] [place] [address] Care Team Providers Care Machine Mover Name Role Phone Michael Hyde MD Primary Care Provider [phone] Source Comments [facility],non-owned Affiliates and Associated Physician Practices is amultiple site organization consisting of ambulatory clinics and hospital sitesin [place], [place], [place] and [place]. This disclosure is being madepursuant to the Care Everywhere program and may not contain all information available regarding this patient. 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 The modifications have not been cleared or approved by the FDA. This assay has been validated pursuant to the CLIA regulations and is used for clinical purposes. This test was performed using the REBEKAH(R)AmpliPrep/ REBEKAH(R)TaqMan(R)HCV Test,v2.0. For more information on this test, go to: http://education.dia[employer]us/faq/ZSK60u5 (This link is being provided for informational/ educational purposes only.) REPORT COMMENT: FASTING:YES Test Performed at: [facility] [address] [place] [address] MARE MAGANA DO,MPH 01/24/2016 9:20 AM CDT 01/24/2016 9:21 AM CDT us Princess Liao CONTINUOUS DRYOUT OPERATOR HELPER-MEDICAL ADMINISTRATOR LAB - SEROLOGY ORDER KRISTIAN Final Result MATE[facility] (U) [id number] from Last 3 Months or Most Recently Relevant to Health Maintenance Care Teams Machine Mover Relationship Specialty Start Date End Date Michael Hyde MD [address] [place] [address] PCP - General 05/09/15
[2025-05-03 14:09] LABS: Free Testosterone (Direct) 6.0 pg/mL (6.6-18.1)
== END 2025-04-30 06:38 | disposition home or self-care (01) ==
PROVIDERS: PCP Family Medicine; Visit Provider Family Medicine
DX: R68.82 Decreased libido (principal)
CPT/HCPCS: 84402

== ENCOUNTER 2025-07-11 15:34 | Outpatient (CLI) | payer OTHER, SELFPAY ==
--- NOTE | ~2025-07-11 | XR_ITS ---
EXAMINATION: XR shoulder RT min 2V, 07/11/2025 15:37 CDT HISTORY: S49.91XA - Unspecified injury of right shoulder and upper... COMPARISON: No comparisons available. Findings: No acute fracture or malalignment. No significant degenerative changes. Soft tissues unremarkable. Impression: No acute fracture or malalignment. Reviewed, dictated and finalized at location P. Impression: No acute fracture or malalignment.
== END 2025-07-11 15:35 | disposition home or self-care (01) ==
LOC: MICIMG 15:35
PROVIDERS: PCP Family Medicine; Visit Provider Family Medicine
DX: S49.91XA Unspecified injury of right shoulder and upper arm, initial encounter (principal); X58.XXXA Exposure to other specified factors, initial encounter
CPT/HCPCS: 73030